=== PATIENT | female | born 1985 ===

== ENCOUNTER 2020-09-11 17:18 | Emergency (ER) | payer SELFPAY | END 2020-09-11 18:37 | disposition home or self-care (01) | LOC: CSHERS 17:18 | DX: I10 Essential (primary) hypertension (principal); E11.9 Type 2 diabetes mellitus without complications; E78.5 Hyperlipidemia, unspecified; Z79.84 Long term (current) use of oral hypoglycemic drugs; Z79.899 Other long term (current) drug therapy | CPT/HCPCS: 99283 ==